=== PATIENT | female | born 2000 ===

== ENCOUNTER → 2021-09-02 | Outpatient (CLI) ==
[2021-09-02 14:34] LABS: BASOPHILS # (AUTO) 0.1 10^3/uL (0.0-0.1); BASOPHILS % (AUTO) 1 % (0-10); EOSINOPHILS # (AUTO) 0.4 10^3/uL (0.0-0.3); EOSINOPHILS % (AUTO) 4 % (0-10); HEMATOCRIT 42 % (35-52); HEMOGLOBIN 13.8 g/dL (11.5-16.0); LYMPHOCYTES # (AUTO) 1.7 10^3/uL (1.0-4.0); LYMPHOCYTES % (AUTO) 18 % (12-44); MEAN CORPUSCULAR HEMOGLOBIN 31 pg (25-34); MEAN CORPUSCULAR HGB CONC 33 g/dL (32-36); MEAN CORPUSCULAR VOLUME 92 fL (80-99); MEAN PLATELET VOLUME 11.4 fL (9.0-12.2); MONOCYTES # (AUTO) 0.5 10^3/uL (0.0-1.0); MONOCYTES % (AUTO) 5 % (0-12); NEUTROPHILS # (AUTO) 7.2 10^3/uL (1.8-7.8); NEUTROPHILS % (AUTO) 73 % (42-75); PLATELET COUNT 213 10^3/uL (130-400); WHITE BLOOD COUNT 9.9 10^3/uL (4.3-11.0)
[2021-09-02 14:41] LABS: POTASSIUM 3.9 MMOL/L (3.6-5.0)
[2021-09-02 14:42] LABS: CALCIUM 9.1 MG/DL (8.5-10.1)
[2021-09-02 14:43] LABS: TOTAL PROTEIN 6.1 GM/DL (6.4-8.2)
[2021-09-02 14:45] LABS: BILIRUBIN,TOTAL 0.4 MG/DL (0.1-1.0)
[2021-09-02 14:47] LABS: CREATININE SERUM 0.76 MG/DL (0.60-1.30)
[2021-09-02 15:11] LABS: FREE T4 (FREE THYROXINE) 1.12 NG/DL (0.70-1.48)
[2021-09-02 23:21] LABS: HEPATITIS C ANTIBODY C Non-Reactive (Non-Reactive)
== END ==
LOC: LABNPT 14:18
PROVIDERS: ATTEND Obstetrics & Gynecology
DX: Z36.9 Encounter for antenatal screening, unspecified (principal)
CPT/HCPCS: 80053; 84439; 84443; 85025; 86703; 86762; 86780; 86803; 86850; 86900; 86901; 87088; 87340; 87491; 87591